=== PATIENT | male | born 1995 | race Caucasian/White ===

== ENCOUNTER 2024-07-04 09:33 | Emergency (ER) | payer BC ==
[2024-07-04] MEDS: KETOROLAC 15 MG/ML 1 ML VIAL IM STA (10:13)
--- NOTE | 2024-07-04 10:32 | XR ---
EXAMINATION TYPE: XR lumbosacral spine min 4V DATE OF EXAM: 07/04/2024 10:29 AM CLINICAL INDICATION: Male, 28 years old with history of fall; [facility] COMPARISON: None TECHNIQUE: XR lumbosacral spine min 4V - Frontal, lateral , bilateral oblique and coned in L5-S1 late ral views of the spine. FINDINGS: No evidence of any acute osseous pathology. No evidence of loss of vertebral body height i s seen. There is normal alignment of the lumbar vertebral bodies. No significant degeneration changes throughout the spine. IMPRESSION: No acute fracture.
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
[2024-07-04 11:27] VITALS: BP 129/76; PULSE 71; RESP 16; TEMP 98
== END 2024-07-04 11:27 | disposition home or self-care (01) ==
LOC: EC 09:33
DX: M54.50 Low back pain, unspecified
CPT/HCPCS: 72110; 96372; 99283

== ENCOUNTER 2025-02-08 19:30 | Emergency (ER) | payer BC, OTHER ==
[2025-02-08 20:53] LABS: Appearance,Urine Cloudy (Clear); Bacteria,Urine Rare /hpf; Bilirubin,Urine Negative (Negative); Blood,Urine Moderate (Negative); Color,Urine Yellow; Glucose,Urine (UA) Negative (Negative); Ketones,Urine Trace (Negative); Leukocyte Esterase,Urine Negative (Negative); Mucus,Urine Moderate /hpf; Nitrite,Urine Negative (Negative); PH, Urine 5.5 (5.0-8.0); Protein,Urine Trace (Negative); RBC,Urine 1 /hpf (0-5); Urobilinogen,Urine <2.0 mg/dL (<2.0); WBC,Urine 3 /hpf (0-5)
[2025-02-08 21:44] LABS: Basophils % (A) 0.5 %; HCT 44.2 % (39.6-50.0); HGB 15.9 g/dL (13.0-17.0); Lymphocytes # (A) 1.21 10*3/uL (0.90-5.00); MCV 91.7 fL (80.0-97.0); Mean Platelet Volume 10.2 fL (9.5-12.2); Monocytes # (A) 1.22 10*3/uL (0.20-1.00); Monocytes % (A) 6.1 %; Neutrophils # (A) 17.52 10*3/uL (1.80-7.70); Neutrophils % (A) 86.9 %; Platelet Count 280 10*3/uL (140-440); RBC 4.82 10*6/uL (4.40-5.60); RDW 12.9 % (11.5-14.5); WBC 20.15 10*3/uL (4.50-10.00)
[2025-02-08 21:57] LABS: ALT 53 U/L (4-49); AST 61 U/L (17-59); African American GFR (CKD) >90 (>60 ml/min/1.73 sqM); Albumin 5.5 g/dL (3.5-5.0); Alkaline Phosphatase 118 U/L (38-126); Anion Gap 13 mmol/L; Blood Urea Nitrogen 18 mg/dL (9-20); Calcium 10.1 mg/dL (8.4-10.2); Carbon Dioxide 25 mmol/L (22-30); Chloride 100 mmol/L (98-107); Glucose 110 mg/dL (74-99); Non-African American GFR(CKD) >90 (>60 ml/min/1.73 sqM); Potassium 3.9 mmol/L (3.5-5.1); Sodium 138 mmol/L (137-145); Total Protein 9.1 g/dL (6.3-8.2)
--- NOTE | 2025-02-08 22:55 | ED ---
General Adult HPI - General Chief complaint: Urogenital Stated complaint: Abd/Back Pain Time Seen by Provider: 02/08/25 22:31 Source: patient Mode of arrival: ambulatory Limitations: no limitations - History of Present Illness Initial comments: This patient is a 29-year-old man who presents to have evaluation for right flank pain. Patient states that he had awakened this afternoon, approximately 452, experiencing the urge to have a bowel movement. The patient states that he went to the bathroom but he was not able to have a bowel movement and he noticed that there was pain to the right flank. He also has had urge to urinate frequently but is only passing small amount of urine. The pain initially very severe he states that it is now moderate. He also had some diaphoresis and nausea but that has resolved. Denies similar episodes in the past. No fever or chills. -: hour(s) Location: abdomen Radiation: flank Quality: aching Consistency: colicky Improves with: none Worsens with: none Associated Symptoms: other (Frequency/urgency) Treatments Prior to Arrival: none - Related Data Previous Rx's Medication Instructions Recorded Ibuprofen [Motrin] 600 mg PO Q8HR PRN #24 tab 07/04/24 Tamsulosin [Flomax] 0.4 mg PO DAILY #14 cap 02/09/25 Allergies Allergy/AdvReac Type Severity Reaction Status Date / Time No Known Allergies Allergy Verified 02/08/25 19:59 Review of Systems ROS Statement: Those systems with pertinent positive or pertinent negative responses have been documented in the HPI. ROS Other: All systems not noted in ROS Statement are negative. Constitutional: Denies: fever, chills, weakness Respiratory: Denies: cough, dyspnea Cardiovascular: Denies: chest pain, palpitations, edema Gastrointestinal: Reports: abdominal pain, nausea. Denies: vomiting, diarrhea, constipation, hematemesis, melena, hematochezia Genitourinary: Reports: urgency, frequency. Denies: dysuria, hematuria, discharge, testicular pain, testicular mass Musculoskeletal: Denies: back pain Skin: Denies: rash Neurological: Denies: headache, weakness Past Medical History Past Medical History: No Reported History History of Any Multi-Drug Resistant Organisms: None Reported Past Surgical History: No Surgical Hx Reported Past Psychological History: No Psychological Hx Reported Smoking Status: Never smoker Past Alcohol Use History: Daily Past Drug Use History: Marijuana General Exam Limitations: no limitations General appearance: alert, in no apparent distress Head exam: Present: atraumatic, normocephalic Eye exam: Present: normal appearance. Absent: scleral icterus, conjunctival injection ENT exam: Present: normal oropharynx Neck exam: Present: normal inspection Respiratory exam: Present: normal lung sounds bilaterally. Absent: respiratory distress, wheezes, rales, rhonchi, chest wall tenderness Cardiovascular Exam: Present: regular rate, normal rhythm, normal heart sounds. Absent: systolic murmur, diastolic murmur, rubs, gallop GI/Abdominal exam: Present: soft. Absent: distended, tenderness, guarding, rebound, rigid, mass Extremities exam: Present: normal inspection, normal capillary refill. Absent: pedal edema, calf tenderness Back exam: Present: normal inspection. Absent: CVA tenderness (R), CVA tenderness (L) Neurological exam: Present: alert Skin exam: Present: warm, dry, intact, normal color. Absent: rash Course Vital Signs 02/08/25 19:59 Temperature 97.4 F L Pulse Rate 79 Respiratory 18 Rate Blood Pressure 149/99 O2 Sat by Pulse 100 Oximetry Medical Decision Making - Lab Data Result diagrams: 02/08/25 21:37 02/08/25 21:37 Lab Results 02/08/25 02/08/25 02/08/25 Range/Units 20:04 21:37 21:37 WBC 20.15 H (4.50-10.00) 10*3/uL RBC 4.82 (4.40-5.60) 10*6/uL Hgb 15.9 (13.0-17.0) g/dL Hct 44.2 (39.6-50.0) % MCV 91.7 (80.0-97.0) fL MCH 33.0 H (27.0-32.0) pg MCHC 36.0 (32.0-37.0) g/dL Plt Count 280 (140-440) 10*3/uL MPV 10.2 (9.5-12.2) fL Immature Gran % (Auto) 0.5 % Neutrophils % 86.9 % Lymphocytes % 6.0 % Monocytes % 6.1 % Eosinophils % 0.0 % Basophils % 0.5 % Immature Gran # 0.10 H (0.00-0.04) 10*3/uL Neutrophils # 17.52 H (1.80-7.70) 10*3/uL Lymphocytes # 1.21 (0.90-5.00) 10*3/uL Monocytes # 1.22 H (0.20-1.00) 10*3/uL Eosinophils # 0.00 L (0.04-0.35) 10*3/uL Basophils # 0.10 (0.00-0.10) 10*3/uL Sodium 138 (137-145) mmol/L Potassium 3.9 (3.5-5.1) mmol/L Chloride 100 (98-107) mmol/L Carbon Dioxide 25 (22-30) mmol/L Anion Gap 13 mmol/L BUN 18 (9-20) mg/dL Creatinine 0.88 (0.66-1.25) mg/dL Est GFR (CKD-EPI)AfAm >90 (>60 ml/min/1.73 sqM) Est GFR (CKD-EPI)NonAf >90 (>60 ml/min/1.73 sqM) Glucose 110 H (74-99) mg/dL Calcium 10.1 (8.4-10.2) mg/dL Total Bilirubin 1.0 (0.2-1.3) mg/dL AST 61 H (17-59) U/L ALT 53 H (4-49) U/L Alkaline Phosphatase 118 (38-126) U/L Total Protein 9.1 H (6.3-8.2) g/dL Albumin 5.5 H (3.5-5.0) g/dL Urine Color Yellow Urine Appearance Cloudy (Clear) Urine pH 5.5 (5.0-8.0) Ur Specific [place] 1.030 (1.001-1.035) Urine Protein Trace H (Negative) Urine Glucose (UA) Negative (Negative) Urine Ketones Trace H (Negative) Urine Blood Moderate H (Negative) Urine Nitrite Negative (Negative) Urine Bilirubin Negative (Negative) Urine Urobilinogen <2.0 (<2.0) mg/dL Ur Leukocyte Esterase Negative (Negative) Urine RBC 1 (0-5) /hpf Urine WBC 3 (0-5) /hpf Urine Bacteria Rare H (None) /hpf Urine Mucus Moderate H (None) /hpf Disposition Clinical Impression: Kidney stone Disposition: HOME SELF-CARE Condition: Good Instructions (If sedation given, give patient instructions): Kidney Stones (ED) Prescriptions: Tamsulosin [Flomax] 0.4 mg PO DAILY #14 cap Is patient prescribed a controlled substance at d/c from ED?: No Referrals: None,Stated [Primary Care Provider] - 1-2 days Haseeb Arevalo MD [STAFF PHYSICIAN] - 1-2 days
[2025-02-09] MEDS: TAMSULOSIN 0.4 MG CAP.ER.24H PO STA (00:01)
--- NOTE | 2025-02-09 00:29 | CT ---
EXAM: CT Abdomen and Pelvis Without Intravenous Contrast CLINICAL HISTORY: ITS.REASON CT Reason: right flank pain TECHNIQUE: Axial computed tomography images of the abdomen and pelvis without intravenous contrast. CTDI is 11.8 mGy and DLP is 743 mGy-cm. This CT exam was performed using one or more of the following dose reduction techniques: automated exposure control, adjustment of the mA and/or kV according to patient size, and/or use of iterative reconstruction technique. COMPARISON: No previous studies. FINDINGS: Lung bases: Unremarkable. No mass. No consolidation. Pleural space: Unremarkable. No pneumothorax. No pleural effusions. Heart: Heart is normal in size. ABDOMEN: Liver: The liver and the spleen are normal in contour. Gallbladder and bile ducts: See below. Pancreas: See below. Spleen: See above. Adrenals: The adrenal glands, the head, body, tail of the pancreas and the gallbladder are unremarkable. Kidneys and ureters: Mild right hydronephrosis and right hydroureter down to the right ureterovesical junction, seen on series 201 image 129, where there is a 0.3 cm obstructing calculus. No left renal calculus or hydronephrosis. Stomach and bowel: Moderate quantity of ingested material in the stomach. Minimal wall thickening of the ascending colon with fatty infiltration of the colonic wall. Mild inflammatory or infectious etiologies including chronic mild inflammatory or infectious etiology should be considered. Diverticulosis. No obstruction. PELVIS: Appendix: Appendix is seen on coronal image 48 and is unremarkable. Bladder: Bladder is underdistended. No stones. Reproductive: Unremarkable as visualized. ABDOMEN and PELVIS: Intraperitoneal space: Unremarkable. No free air. No significant fluid collection. Bones/joints: No acute fracture. No dislocation. No spondylolysis. Soft tissues: Unremarkable. Vasculature: Unremarkable. No abdominal aortic aneurysm. Lymph nodes: Unremarkable. No enlarged lymph nodes. IMPRESSION: 1. The dominant finding of the current study is a 0.3 cm obstructing calculus at the right ureterovesical junction causing right hydronephrosis and right hydroureter. 2. Mild wall thickening of the ascending colon as discussed above.
[2025-02-09 01:56] VITALS: BP 132/90; PULSE 114; RESP 17; TEMP 98.1
== END 2025-02-09 01:56 | disposition home or self-care (01) ==
LOC: EC 19:30
DX: N13.2 Hydronephrosis with renal and ureteral calculous obstruction (principal)
CPT/HCPCS: 36415; 74176; 80053; 81001; 85025; 99284